=== PATIENT | female | born 1995 | race American Indian/Alaskan Native ===

== ENCOUNTER 2019-11-16 21:58 | Emergency (ER) | payer OTHER ==
[2019-11-16 23:39] LABS: Bacteria,Urine 1+ /HPF (Negative); Bilirubin,Urine NEG (Negative); Blood,Urine MOD (Negative); Color,Urine Yellow (Yellow); HCG Qualitative,Urine Positive (Negative); Protein,Urine <15 mg/dL mg/dL (Negative); Urobilinogen,Urine < 2.0 mg/dL (<2.0)
[2019-11-17 00:37] LABS: Basophils % (Auto) 0.4 % (0.0-1.8); Hematocrit 41.4 % (30.3-42.9); Hemoglobin 14.2 gm/dl (10.1-14.3); Lymphocytes # (Auto) 3.3 K/mm3 (1.2-5.4); Lymphocytes % (Auto) 53.1 % (13.4-35.0); Mean Corpuscular HGB Conc 34 % (30-34); Mean Corpuscular Volume 99 fl (79-97); Monocytes # (Auto) 0.3 K/mm3 (0.0-0.8); Monocytes % (Auto) 5.1 % (0.0-7.3); Platelet Count 200 K/mm3 (140-440); Red Blood Count 4.18 M/mm3 (3.65-5.03); Red Cell Distribution Width 13.8 % (13.2-15.2)
[2019-11-17 00:49] LABS: Alanine Aminotransferase 12 units/L (7-56); Albumin 4.7 g/dL (3.9-5); BUN/Creatinine Ratio 8; Blood Urea Nitrogen 7 mg/dL (7-17); Calcium 9.2 mg/dL (8.4-10.2); Hemolysis Index 7
[2019-11-17] MEDS ORDERED: AZITHROMYCIN 250 MG TAB PO ONE (00:52)
[2019-11-17] MEDS ORDERED: LIDOCAINE-MPF (1%) 10 MG/1 ML VIAL 5 ML INFILTRATI ONE (00:52)
[2019-11-17 01:41] VITALS: BP 125/87
--- NOTE | 2019-11-17 01:43 | Emergency Department Report ---
ED Female HPI - General Chief complaint: Abdominal Pain Stated complaint: ABDOMINAL PAIN Time Seen by Provider: 11/17/19 00:22 Source: patient Mode of arrival: Ambulatory Limitations: No Limitations - History of Present Illness Initial comments: Patient is a 24-year-old female presents emergency room with complaints of urinary frequency and dysuria that began this morning. She states she has associated suprapubic abdominal pain described as a pressure. She denies any nausea, vomiting, diarrhea, fever, back pain. She does not report any vaginal discharge or irritation. She states that she does have unprotected intercourse and would like to be covered for STDs. She states her last menstrual cycle was October 18. She has a past medical history of hyperthyroidism and is on methimazole and propanolol. She denies any allergies to medications. - Related Data Previous Rx's Medication Instructions Recorded Last Taken Type cephALEXin [Keflex] 500 mg PO BID 7 Days #14 cap 11/17/19 Unknown Rx Allergies Allergy/AdvReac Type Severity Reaction Status Date / Time No Known Allergies Allergy Verified 11/16/19 22:09 ED Review of Systems ROS: Stated complaint: ABDOMINAL PAIN Other details as noted in HPI Comment: All other systems reviewed and negative ED Past Medical Hx - Past Medical History Previous Medical History?: Yes Additional medical history: hyperthyroid - Surgical History Past Surgical History?: No - Social History Smoking Status: Current Every Day Smoker Substance Use Type: Marijuana - Medications Home Medications: Home Medications Medication Instructions Recorded Confirmed Last Taken Type cephALEXin [Keflex] 500 mg PO BID 7 Days #14 cap 11/17/19 Unknown Rx ED Physical Exam - General Limitations: No Limitations General appearance: alert, in no apparent distress - Head Head exam: Present: atraumatic, normocephalic - Eye Eye exam: Present: normal appearance - ENT ENT exam: Present: mucous membranes moist - Respiratory Respiratory exam: Present: normal lung sounds bilaterally. Absent: respiratory distress, wheezes, rales, rhonchi, stridor, chest wall tenderness, decreased breath sounds, prolonged expiratory - Cardiovascular Cardiovascular Exam: Present: regular rate, normal rhythm, normal heart sounds. Absent: systolic murmur, diastolic murmur, rubs, gallop - Back Exam Back exam: Absent: CVA tenderness (R), CVA tenderness (L) - Neurological Exam Neurological exam: Present: alert, oriented X3 - Psychiatric Psychiatric exam: Present: normal affect, normal mood - Skin Skin exam: Present: warm, dry, intact ED Course Vital Signs 11/16/19 22:08 Temperature 98.3 F Pulse Rate 87 Respiratory 18 Rate Blood Pressure 125/87 O2 Sat by Pulse 100 Oximetry ED Medical Decision Making - Lab Data Result diagrams: 11/16/19 23:57 11/16/19 23:57 Lab Results 11/16/19 11/16/19 11/16/19 Range/Units 23:47 23:57 23:57 WBC 6.2 (4.5-11.0) K/mm3 RBC 4.18 (3.65-5.03) M/mm3 Hgb 14.2 (10.1-14.3) gm/dl Hct 41.4 (30.3-42.9) % MCV 99 H (79-97) fl MCH 34 H (28-32) pg MCHC 34 (30-34) % RDW 13.8 (13.2-15.2) % Plt Count 200 (140-440) K/mm3 Lymph % (Auto) 53.1 H (13.4-35.0) % [place] % (Auto) 5.1 (0.0-7.3) % Eos % (Auto) 0.0 (0.0-4.3) % Baso % (Auto) 0.4 (0.0-1.8) % Lymph # 3.3 (1.2-5.4) K/mm3 [place] # 0.3 (0.0-0.8) K/mm3 Eos # 0.0 (0.0-0.4) K/mm3 Baso # 0.0 (0.0-0.1) K/mm3 Seg Neutrophils % 41.4 (40.0-70.0) % Seg Neutrophils # 2.6 (1.8-7.7) K/mm3 Sodium 138 (137-145) mmol/L Potassium 3.7 (3.6-5.0) mmol/L Chloride 98.4 (98-107) mmol/L Carbon Dioxide 25 (22-30) mmol/L Anion Gap 18 mmol/L BUN 7 (7-17) mg/dL Creatinine 0.9 (0.7-1.2) mg/dL Estimated GFR > 60 ml/min BUN/Creatinine Ratio 8 % Glucose 100 (65-100) mg/dL Calcium 9.2 (8.4-10.2) mg/dL Total Bilirubin 1.30 H (0.1-1.2) mg/dL AST 15 (5-40) units/L ALT 12 (7-56) units/L Alkaline Phosphatase 133 H (35-129) units/L Total Protein 7.8 (6.3-8.2) g/dL Albumin 4.7 (3.9-5) g/dL Albumin/Globulin Ratio 1.5 % HCG, Quant (0-4) mIU/mL Urine Color (Yellow) Urine Turbidity (Clear) Urine pH (5.0-7.0) Ur Specific [place] (1.003-1.030) Urine Protein (Negative) mg/dL Urine Glucose (UA) (Negative) mg/dL Urine Ketones (Negative) mg/dL Urine Blood (Negative) Urine Nitrite (Negative) Urine Bilirubin (Negative) Urine Urobilinogen (<2.0) mg/dL Ur Leukocyte Esterase (Negative) Urine WBC (Auto) (0.0-6.0) /HPF Urine RBC (Auto) (0.0-6.0) /HPF U Epithel Cells (Auto) (0-13.0) /HPF Urine Bacteria (Auto) (Negative) /HPF Urine HCG, Qual (Negative) Blood Type AB POSITIVE 11/16/19 11/16/19 Range/Units 23:57 Unknown WBC (4.5-11.0) K/mm3 RBC (3.65-5.03) M/mm3 Hgb (10.1-14.3) gm/dl Hct (30.3-42.9) % MCV (79-97) fl MCH (28-32) pg MCHC (30-34) % RDW (13.2-15.2) % Plt Count (140-440) K/mm3 Lymph % (Auto) (13.4-35.0) % [place] % (Auto) (0.0-7.3) % Eos % (Auto) (0.0-4.3) % Baso % (Auto) (0.0-1.8) % Lymph # (1.2-5.4) K/mm3 [place] # (0.0-0.8) K/mm3 Eos # (0.0-0.4) K/mm3 Baso # (0.0-0.1) K/mm3 Seg Neutrophils % (40.0-70.0) % Seg Neutrophils # (1.8-7.7) K/mm3 Sodium (137-145) mmol/L Potassium (3.6-5.0) mmol/L Chloride (98-107) mmol/L Carbon Dioxide (22-30) mmol/L Anion Gap mmol/L BUN (7-17) mg/dL Creatinine (0.7-1.2) mg/dL Estimated GFR ml/min BUN/Creatinine Ratio % Glucose (65-100) mg/dL Calcium (8.4-10.2) mg/dL Total Bilirubin (0.1-1.2) mg/dL AST (5-40) units/L ALT (7-56) units/L Alkaline Phosphatase (35-129) units/L Total Protein (6.3-8.2) g/dL Albumin (3.9-5) g/dL Albumin/Globulin Ratio % HCG, Quant 35.66 H (0-4) mIU/mL Urine Color Yellow (Yellow) Urine Turbidity Cloudy (Clear) Urine pH 6.0 (5.0-7.0) Ur Specific [place] 1.013 (1.003-1.030) Urine Protein <15 mg/dl (Negative) mg/dL Urine Glucose (UA) Neg (Negative) mg/dL Urine Ketones Neg (Negative) mg/dL Urine Blood Mod (Negative) Urine Nitrite Pos (Negative) Urine Bilirubin Neg (Negative) Urine Urobilinogen < 2.0 (<2.0) mg/dL Ur Leukocyte Esterase Lg (Negative) Urine WBC (Auto) 156.0 H (0.0-6.0) /HPF Urine RBC (Auto) 6.0 (0.0-6.0) /HPF U Epithel Cells (Auto) 32.0 H (0-13.0) /HPF Urine Bacteria (Auto) 1+ (Negative) /HPF Urine HCG, Qual Positive A (Negative) Blood Type - Radiology Data Radiology results: report reviewed OB ultrasound first trimester INDICATION: Pelvic pain, FINDINGS: Transabdominal and transvaginal imaging is performed. The uterus measures 8.8 cm. Endometrial stripe measures 9 mm. The right ovary measures 3.4 cm and is unremarkable. The left ovary measures 3.3 cm and contains a 2 cm complex nodule likely representing hemorrhagic cyst. There is no free fluid. IMPRESSION: No intrauterine is seen. This may simply represent a which is too early to visualize. Based upon this exam, ectopic cannot be entirely excluded though I do not see any definitive evidence for ectopic. Correlation with serum beta hCG level is recommended. Follow-up ultrasound should be obtained as is clinically warranted. Signer Name: Jamaal Patton MD Signed: 11/17/2019 2:39 AM Workstation Name: [id number] Transcribed By: SONG Dictated By: Jamaal Patton MD Electronically Authenticated By: Jamaal Patton MD Signed Date/Time: 11/17/19238 DD/ 4 TD/TT: - Medical Decision Making Patient is a 24-year-old female presents emergency room with complaints of urinary frequency and dysuria that began this morning. She states she has associated suprapubic abdominal pain described as a pressure. She denies any nausea, vomiting, diarrhea, fever, back pain. She does not report any vaginal discharge or irritation. She states that she does have unprotected intercourse and would like to be covered for STDs. She states her last menstrual cycle was October 18. She has a past medical history of hyperthyroidism and is on methimazole and propanolol. She denies any allergies to medications. Vitals are normal. No abdominal tenderness or CVA tenderness on exam. UA with many white blood cells and positive for leukocyte esterase and nitrites. Urine is positive. hCG quant is 35. OB ultrasound shows: No intrauterine is seen. This may simply represent a which is too early to visualize. Based upon this exam, ectopic cannot be entirely excluded though I do not see any definitive evidence for ectopic. Correlation with serum beta hCG level is recommended. Follow-up ultrasound should be obtained as if clinically warranted. Discussed ultrasound findings in detail with patient discussed that could be too early as her quant is only 35 or could be ectopic and discussed the importance of very close follow-up, patient verbalized understanding. Patient given 1 g ceftriaxone and azithromycin while in the ED to cover for UTI/G/C. Discussed case with Dr. Brianne Pascual, ER attending given that patient is and is on methimazole, recommended to have patient stop methimazole and to only take propanolol at this time and to have her see her primary care doctor or [facility] to determine her medication management. Patient given prescription for Keflex. Advised patient Please take medication as prescribed. Please increase your water intake. Please begin taking a vitamin [id number]. Please follow-up with [facility] in the next 2 days. You need to have a repeat hCG quant. Today your hCG quant is 35. please take your ultrasound report to the [facility]. Please stop taking methimazole and only take propanolol until you speak with your primary care doctor or the [facility] regarding being . return to the emergency reported new or worsening symptoms. Please have your partner tested and treated for STDs. Please avoid sexual intercourse. Critical care attestation.: If time is entered above; I have spent that time in minutes in the direct care of this critically ill patient, excluding procedure time. ED Disposition Clinical Impression: Left ovarian cyst UTI (urinary tract infection) Qualifiers: Urinary tract infection type: acute cystitis Hematuria presence: without hematuria Qualified Code(s): N30.00 - Acute cystitis without hematuria Qualifiers: Weeks of gestation: less than 8 weeks Qualified Code(s): Z3A.01 - Less than 8 weeks gestation of Disposition: - TO HOME OR SELFCARE Is pt being admited?: No Does the pt Need Aspirin: No Condition: Stable Instructions: (ED), Urinary Tract Infection in Women (ED) Additional Instructions: Please take medication as prescribed. Please increase your water intake. Please begin taking a vitamin [id number]. Please follow-up with [facility] in the next 2 days. You need to have a repeat hCG quant. Today your hCG quant is 35. please take your ultrasound report to the [facility]. Please stop taking methimazole and only take propanolol until you speak with your primary care doctor or the [facility] regarding being . return to the emergency reported new or worsening symptoms. Please have your partner tested and treated for STDs. Please avoid sexual intercourse. Prescriptions: cephALEXin [Keflex] 500 mg PO BID 7 Days #14 cap Referrals: [facility] [Provider Group] - 2-3 Days [facility] [Provider Group] - 2-3 Days [facility] [Provider Group] - 2-3 Days Time of Disposition: 02:49 Print Language: ESTONIAN
--- NOTE | 2019-11-17 02:44 | Ultrasound Report ---
OB ultrasound first trimester INDICATION: Pelvic pain, FINDINGS: Transabdominal and transvaginal imaging is performed. The uterus measures 8.8 cm. Endometrial stripe measures 9 mm. The right ovary measures 3.4 cm and is unremarkable. The left ovary measures 3.3 cm and contains a 2 cm complex nodule likely representing h emorrhagic cyst. There is no free fluid. IMPRESSION: No intrauterine is seen. This may simply represent a which is too early to visual ize. Based upon this exam, ectopic cannot be entirely excluded though I do not see any definitiv e evidence for ectopic. Correlation with serum beta hCG level is recommended. Follow-up ultrasound should be obtained as is c linically warranted. Signer Name: Jamaal Patton MD Signed: 11/17/2019 2:39 AM Workstation Name: [id number]
== END 2019-11-17 03:34 | disposition home or self-care (01) ==
LOC: ED 21:58
DX: O23.41 Unspecified infection of urinary tract in pregnancy, first trimester (principal); O34.81 Maternal care for other abnormalities of pelvic organs, first trimester; N83.202 Unspecified ovarian cyst, left side; E05.90 Thyrotoxicosis, unspecified without thyrotoxic crisis or storm; F17.200 Nicotine dependence, unspecified, uncomplicated; F12.10 Cannabis abuse, uncomplicated; Z3A.08 8 weeks gestation of pregnancy; Z79.899 Other long term (current) drug therapy
CPT/HCPCS: 36415; 76801; 76817; 80053; 81001; 81025; 84702; 85025; 86900; 86901; 87086; 96372; 99284; J0696

== ENCOUNTER 2020-03-30 08:30 | Emergency (ER) | payer OTHER ==
--- NOTE | 2020-03-30 11:02 | Emergency Department Report ---
ED General Adult HPI - General Chief complaint: Urogenital-Female Stated complaint: LUMP IN RT BREAST Time Seen by Provider: 03/30/20 09:16 Source: patient Mode of arrival: Ambulatory Limitations: No Limitations - History of Present Illness Initial comments: 24-year-old [place] female presents emerged department complaining of a 1 year history of a right breast mass which began to get painful on yesterday. Reports no swelling no nipple discharge no fevers chills or sweats no nausea vomiting no shortness of breath. This pain is worse with palpation and certain positions he reports no known history of any breast cancer or family history of breast cancer. She is not been Breast-feeding. Radiation: non-radiation Quality: dull Consistency: constant Improves with: none Worsens with: none Associated Symptoms: denies: confusion, chest pain, diaphoresis, loss of appetite, malaise, nausea/vomiting, rash, syncope, weakness Treatments Prior to Arrival: none - Related Data Previous Rx's Medication Instructions Recorded Last Taken Type cephALEXin [Keflex] 500 mg PO BID 7 Days #14 cap 11/17/19 Unknown Rx Dicloxacillin Sodium 500 mg PO QID #40 capsule 03/30/20 Unknown Rx Ketorolac [Toradol] 10 mg PO Q6H PRN #10 tablet 03/30/20 Unknown Rx Allergies Allergy/AdvReac Type Severity Reaction Status Date / Time No Known Allergies Allergy Verified 11/16/19 22:09 ED Review of Systems ROS: Stated complaint: LUMP IN RT BREAST Other details as noted in HPI Comment: All other systems reviewed and negative ED Past Medical Hx - Past Medical History Previous Medical History?: Yes Additional medical history: hyperthyroid - Surgical History Past Surgical History?: No - Social History Smoking Status: Never Smoker Substance Use Type: Marijuana - Medications Home Medications: Home Medications Medication Instructions Recorded Confirmed Last Taken Type cephALEXin [Keflex] 500 mg PO BID 7 Days #14 cap 11/17/19 Unknown Rx Dicloxacillin Sodium 500 mg PO QID #40 capsule 03/30/20 Unknown Rx Ketorolac [Toradol] 10 mg PO Q6H PRN #10 tablet 03/30/20 Unknown Rx ED Physical Exam - General Limitations: No Limitations General appearance: alert, in no apparent distress - Head Head exam: Present: atraumatic, normocephalic - Eye Eye exam: Present: normal appearance, PERRL, EOMI Pupils: Present: normal accommodation - ENT ENT exam: Present: normal exam, normal orophraynx, mucous membranes moist, TM's normal bilaterally - Neck Neck exam: Present: normal inspection, full ROM - Respiratory Respiratory exam: Present: normal lung sounds bilaterally. Absent: respiratory distress - Cardiovascular Cardiovascular Exam: Present: regular rate, normal rhythm. Absent: systolic murmur, diastolic murmur, rubs, gallop - GI/Abdominal GI/Abdominal exam: Present: soft, normal bowel sounds - Extremities Exam Extremities exam: Present: normal inspection - Back Exam Back exam: Present: normal inspection - Neurological Exam Neurological exam: Present: alert, oriented X3 - Psychiatric Psychiatric exam: Present: normal affect, normal mood - Skin Skin exam: Present: warm, dry, intact, normal color. Absent: rash ED Course Vital Signs 03/30/20 08:32 Temperature 98.3 F Pulse Rate 73 Respiratory 16 Rate Blood Pressure 113/78 O2 Sat by Pulse 100 Oximetry Critical care attestation.: If time is entered above; I have spent that time in minutes in the direct care of this critically ill patient, excluding procedure time. ED Disposition Clinical Impression: Breast mass Disposition: DC-01 TO HOME OR SELFCARE Is pt being admited?: No Does the pt Need Aspirin: No Condition: Stable Instructions: Breast Self-exam (ED), Breast Mass (ED) Prescriptions: Dicloxacillin Sodium 500 mg PO QID #40 capsule Ketorolac [Toradol] 10 mg PO Q6H PRN #10 tablet PRN Reason: Pain Referrals: ELMA SILVA MD [Primary Care Provider] - 3-5 Days MEREDITH LILLY MD [Staff Physician] - 3-5 Days
[2020-03-30 11:52] VITALS: BP 120/83
== END 2020-03-30 11:39 | disposition home or self-care (01) ==
LOC: ED 08:30
DX: N63.0 Unspecified lump in unspecified breast (principal); F12.10 Cannabis abuse, uncomplicated; Z79.899 Other long term (current) drug therapy
CPT/HCPCS: 99282

== ENCOUNTER 2020-05-21 15:22 | Emergency (ER) | payer OTHER ==
[2020-05-21] MEDS ORDERED: IBUPROFEN 600 MG TAB PO ONE (15:52)
[2020-05-21] MEDS ORDERED: dexAMETHasone 4 MG/ML VIAL IM ONE (15:52)
--- NOTE | 2020-05-21 15:52 | Emergency Department Report ---
ED ENT HPI - General Chief complaint: Sore Throat Stated complaint: TONSILS SWOLLEN Time Seen by Provider: 05/21/20 15:51 Source: patient Mode of arrival: Ambulatory Limitations: No Limitations - History of Present Illness Initial comments: Patient is a 24-year-old female presents emergency room with complaints of sore throat that began 3 days ago. She states that her tonsils feel swollen she states that she has white spots on her tonsils. She states that she has associated fever and chills and nausea. She denies any vomiting, diarrhea, cough, shortness of breath. She states that she has pain with swallowing but is still able to swallow. She denies any known sick contacts. She denies any recent travel. She has a past medical history of hypothyroidism and takes Synthroid. No allergies to medications. Last menstrual cycle 05/03/2020. - Related Data Previous Rx's Medication Instructions Recorded Last Taken Type cephALEXin [Keflex] 500 mg PO BID 7 Days #14 cap 11/17/19 Unknown Rx Dicloxacillin Sodium 500 mg PO QID #40 capsule 03/30/20 Unknown Rx Ketorolac [Toradol] 10 mg PO Q6H PRN #10 tablet 03/30/20 Unknown Rx Penicillin Vk [Veetids TAB] 500 mg PO BID 10 Days #40 tablet 05/21/20 Unknown Rx Allergies Allergy/AdvReac Type Severity Reaction Status Date / Time No Known Allergies Allergy Verified 11/16/19 22:09 ED Dental HPI - General Chief complaint: Sore Throat Stated complaint: TONSILS SWOLLEN Time Seen by Provider: 05/21/20 15:51 Source: patient Mode of arrival: Ambulatory Limitations: No Limitations - Related Data Previous Rx's Medication Instructions Recorded Last Taken Type cephALEXin [Keflex] 500 mg PO BID 7 Days #14 cap 11/17/19 Unknown Rx Dicloxacillin Sodium 500 mg PO QID #40 capsule 03/30/20 Unknown Rx Ketorolac [Toradol] 10 mg PO Q6H PRN #10 tablet 03/30/20 Unknown Rx Penicillin Vk [Veetids TAB] 500 mg PO BID 10 Days #40 tablet 05/21/20 Unknown Rx Allergies Allergy/AdvReac Type Severity Reaction Status Date / Time No Known Allergies Allergy Verified 11/16/19 22:09 ED Review of Systems ROS: Stated complaint: TONSILS SWOLLEN Other details as noted in HPI Comment: All other systems reviewed and negative ED Past Medical Hx - Past Medical History Previous Medical History?: Yes Additional medical history: hyperthyroid - Surgical History Past Surgical History?: No - Social History Smoking Status: Former Smoker Substance Use Type: Alcohol - Medications Home Medications: Home Medications Medication Instructions Recorded Confirmed Last Taken Type cephALEXin [Keflex] 500 mg PO BID 7 Days #14 cap 11/17/19 Unknown Rx Dicloxacillin Sodium 500 mg PO QID #40 capsule 03/30/20 Unknown Rx Ketorolac [Toradol] 10 mg PO Q6H PRN #10 tablet 03/30/20 Unknown Rx Penicillin Vk [Veetids TAB] 500 mg PO BID 10 Days #40 tablet 05/21/20 Unknown Rx ED Physical Exam - General Limitations: No Limitations General appearance: alert, in no apparent distress - Head Head exam: Present: atraumatic, normocephalic - Eye Eye exam: Present: normal appearance - ENT ENT exam: Present: mucous membranes moist, TM's normal bilaterally, normal external ear exam, other (posterior oropharynx erythema, tonsillar hypertrophy with exudates bilaterally, uvula is midline, no uvular edema or deviation, no trismus, no muffled voice, tolerating secretions) - Respiratory Respiratory exam: Present: normal lung sounds bilaterally. Absent: respiratory distress, wheezes, rales, rhonchi, stridor, chest wall tenderness, accessory muscle use, decreased breath sounds, prolonged expiratory - Cardiovascular Cardiovascular Exam: Present: regular rate, normal rhythm, normal heart sounds. Absent: systolic murmur, diastolic murmur, rubs, gallop - Neurological Exam Neurological exam: Present: alert, oriented X3 - Psychiatric Psychiatric exam: Present: normal affect, normal mood - Skin Skin exam: Present: warm, dry, intact ED Course Vital Signs 05/21/20 05/21/20 15:44 16:54 Temperature 100.1 F H Pulse Rate 110 H 96 H Respiratory 22 16 Rate Blood Pressure 122/86 Blood Pressure 113/73 [Left] O2 Sat by Pulse 97 99 Oximetry ED Medical Decision Making - Lab Data Vital Signs 05/21/20 05/21/20 15:44 16:54 Temperature 100.1 F H Pulse Rate 110 H 96 H Respiratory 22 16 Rate Blood Pressure 122/86 Blood Pressure 113/73 [Left] O2 Sat by Pulse 97 99 Oximetry - Medical Decision Making Patient is a 24-year-old female presents emergency room with complaints of sore throat that began 3 days ago. She states that her tonsils feel swollen she states that she has white spots on her tonsils. She states that she has associated fever and chills and nausea. She denies any vomiting, diarrhea, cough, shortness of breath. She states that she has pain with swallowing but is still able to swallow. She denies any known sick contacts. She denies any recent travel. She has a past medical history of hypothyroidism and takes Sy nthroid. No allergies to medications. Last menstrual cycle 05/03/2020. Initial vitals with elevated heart rate and low grade temperature, pt given ibuprofen. On exam:posterior oropharynx erythema, tonsillar hypertrophy with exudates bilaterally, uvula is midline, no uvular edema or deviation, no trismus, no muffled voice, tolerating secretions. Examination appears consistent with tonsillitis. Patient given ibuprofen and dexamethasone IM while in the emergency department. Patient given prescription for penicillin vk. Advised patient to please take medication as prescribed to completion. Increase your fluid intake over the next several days. Gargle with warm salt water 3 times a day. Throw away your toothbrush. Do not drink after others or allow others to drink after you. May use [id number] throat spray or throat lozenges. May take Tylenol or ibuprofen as needed for fever or pain. Follow-up with a primary care doctor for reexamination. Return to emergency room for any new or worsening symptoms. - Differential Diagnosis tonsillitis, pharyngitis, tonsillith, sialoadenitis, mono, abscess Critical care attestation.: If time is entered above; I have spent that time in minutes in the direct care of this critically ill patient, excluding procedure time. ED Disposition Clinical Impression: Tonsillitis Disposition: DC-01 TO HOME OR SELFCARE Is pt being admited?: No Does the pt Need Aspirin: No Condition: Stable Instructions: Tonsillitis, [id number] Additional Instructions: please take medication as prescribed to completion. Increase your fluid intake over the next several days. Gargle with warm salt water 3 times a day. Throw away your toothbrush. Do not drink after others or allow others to drink after you. May use [id number] throat spray or throat lozenges. May take Tylenol or ibuprofen as needed for fever or pain. Follow-up with a primary care doctor for reexamination. Return to emergency room for any new or worsening symptoms. Prescriptions: Penicillin Vk [Veetids TAB] 500 mg PO BID 10 Days #40 tablet Referrals: LINETTE YUEN MD [Staff Physician] - 2-3 Days [facility] [Provider Group] - 2-3 Days [facility], [LAB/CONTRACT] - 2-3 Days Time of Disposition: 16:37 Print Language: FAROESE
[2020-05-21 16:55] VITALS: BP 113/73
== END 2020-05-21 17:10 | disposition home or self-care (01) ==
LOC: ED 15:22
DX: J03.90 Acute tonsillitis, unspecified (principal); Z87.891 Personal history of nicotine dependence; Z79.2 Long term (current) use of antibiotics; Z79.899 Other long term (current) drug therapy
CPT/HCPCS: 96372; 99282; J1100

== ENCOUNTER 2020-06-02 10:45 | Emergency (ER) | payer OTHER ==
[2020-06-02 10:55] VITALS: BP 115/72
--- NOTE | 2020-06-02 10:58 | Emergency Department Report ---
ED General Adult HPI - General Chief complaint: Eye Problems Stated complaint: RT EYE IRRITATION X 4DAYS Time Seen by Provider: 06/02/20 10:53 Source: patient Mode of arrival: Ambulatory Limitations: No Limitations - History of Present Illness Initial comments: 24-year-old -[place] female patient presents with complaints of right eye redness and swelling x2 days she does report mild pain that she rates as a 2/10 in severity. Patient states her symptoms began after she was smoking in the smoke got in her eye. She states she began to rub her eye a great deal and it became irritated. She denies any foreign body sensation, pain with eye movements, fever/chills/sweats, vision changes, headache, or contact lens wearing. - Related Data Previous Rx's Medication Instructions Recorded Last Taken Type cephALEXin [Keflex] 500 mg PO BID 7 Days #14 cap 11/17/19 Unknown Rx Dicloxacillin Sodium 500 mg PO QID #40 capsule 03/30/20 Unknown Rx Ketorolac [Toradol] 10 mg PO Q6H PRN #10 tablet 03/30/20 Unknown Rx Penicillin Vk [Veetids TAB] 500 mg PO BID 10 Days #40 tablet 05/21/20 Unknown Rx Clindamycin [Clindamycin CAP] 300 mg PO Q6H 5 Days #20 capsule 06/02/20 Unknown Rx Erythromycin [Erythromycin Ophth 10 applic OP Q3H 7 Days #1 tube 06/02/20 Unknown Rx Oint] predniSONE [Deltasone] 20 mg PO TID 2 Days #6 tab 06/02/20 Unknown Rx Allergies Allergy/AdvReac Type Severity Reaction Status Date / Time No Known Allergies Allergy Verified 06/02/20 10:45 ED Review of Systems ROS: Stated complaint: RT EYE IRRITATION X 4DAYS Other details as noted in HPI Constitutional: denies: chills, diaphoresis, fever, malaise, weakness Eyes: eye pain. denies: eye discharge, vision change ENT: denies: throat pain Respiratory: denies: cough, shortness of breath Cardiovascular: denies: chest pain Neurological: denies: headache, numbness, paresthesias ED Past Medical Hx - Past Medical History Additional medical history: hyperthyroid - Social History Smoking Status: Never Smoker - Medications Home Medications: Home Medications Medication Instructions Recorded Confirmed Last Taken Type cephALEXin [Keflex] 500 mg PO BID 7 Days #14 cap 11/17/19 Unknown Rx Dicloxacillin Sodium 500 mg PO QID #40 capsule 03/30/20 Unknown Rx Ketorolac [Toradol] 10 mg PO Q6H PRN #10 tablet 03/30/20 Unknown Rx Penicillin Vk [Veetids TAB] 500 mg PO BID 10 Days #40 tablet 05/21/20 Unknown Rx Clindamycin [Clindamycin CAP] 300 mg PO Q6H 5 Days #20 capsule 06/02/20 Unknown Rx Erythromycin [Erythromycin Ophth 10 applic OP Q3H 7 Days #1 tube 06/02/20 Unknown Rx Oint] predniSONE [Deltasone] 20 mg PO TID 2 Days #6 tab 06/02/20 Unknown Rx ED Physical Exam - General Limitations: No Limitations General appearance: alert, in no apparent distress - Head Head exam: Present: atraumatic, normocephalic - Eye Eye exam: Present: PERRL, EOMI (No pain with eye movements), conjunctival injection (Right), periorbital swelling (Moderate, right upper lid with mild erythema). Absent: periorbital tenderness - ENT ENT exam: Absent: normal orophraynx - Neck Neck exam: Present: normal inspection, full ROM. Absent: lymphadenopathy - Respiratory Respiratory exam: Present: normal lung sounds bilaterally. Absent: respiratory distress - Cardiovascular Cardiovascular Exam: Present: regular rate - Neurological Exam Neurological exam: Present: alert, oriented X3, normal gait - Psychiatric Psychiatric exam: Present: normal affect, normal mood - Skin Skin exam: Present: warm, dry, intact. Absent: rash ED Course Vital Signs 06/02/20 10:50 Temperature 98.6 F Pulse Rate 87 Respiratory 19 Rate Blood Pressure 115/72 O2 Sat by Pulse 100 Oximetry ED Medical Decision Making - Medical Decision Making 24-year-old -[place] female patient presents with complaints of right eye redness and swelling x2 days she does report mild pain that she rates as a 2/10 in severity. Patient states her symptoms began after she was smoking in the smoke got in her eye. She states she began to rub her eye a great deal and it became irritated. She denies any foreign body sensation, pain with eye movements, fever/chills/sweats, vision changes, headache, or contact lens wearing. Will treat for conjunctivitis. Given degree of swelling to upper lid, oral clindamycin added for prophylaxis of preseptal cellulitis. Her vitals are normal, she is well-appearing, she is stable for discharge home. Recommend follow-up with PCP in 3 to 5 days. Strict return precautions were discussed in great detail with patient who verbalizes understanding Critical care attestation.: If time is entered above; I have spent that time in minutes in the direct care of this critically ill patient, excluding procedure time. ED Disposition Clinical Impression: Acute bacterial conjunctivitis of right eye Disposition: [id number]-01 TO HOME OR SELFCARE Is pt being admited?: No Condition: Stable Instructions: Bacterial Conjunctivitis, Adult Prescriptions: Clindamycin [Clindamycin CAP] 300 mg PO Q6H 5 Days #20 capsule predniSONE [Deltasone] 20 mg PO TID 2 Days #6 tab Erythromycin [Erythromycin Ophth Oint] 10 applic OP Q3H 7 Days #1 tube Referrals: [facility] [Provider Group] - 3-5 Days
== END 2020-06-02 12:25 | disposition home or self-care (01) ==
LOC: ED 10:45
DX: H10.31 Unspecified acute conjunctivitis, right eye (principal); Z79.2 Long term (current) use of antibiotics; Z79.899 Other long term (current) drug therapy
CPT/HCPCS: 99282

== ENCOUNTER 2020-09-12 15:15 | Emergency (ER) | payer SELFPAY ==
[2020-09-12 15:37] VITALS: BP 106/72
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
== END 2020-09-12 16:54 | disposition home or self-care (01) ==
LOC: ED 15:15
DX: S16.1XXA Strain of muscle, fascia and tendon at neck level, initial encounter (principal); E05.90 Thyrotoxicosis, unspecified without thyrotoxic crisis or storm; Z79.899 Other long term (current) drug therapy; V49.59XA Passenger injured in collision with other motor vehicles in traffic accident, initial encounter; Y92.410 Unspecified street and highway as the place of occurrence of the external cause; Y93.89 Activity, other specified; Y99.8 Other external cause status
CPT/HCPCS: 99281

== ENCOUNTER 2020-10-21 10:11 | Emergency (ER) | payer OTHER ==
[2020-10-21 10:17] VITALS: BP 109/78
--- NOTE | 2020-10-21 11:07 | Emergency Department Report ---
ED General Adult HPI - General Chief complaint: Medical Clearance Stated complaint: MED REFILL Time Seen by Provider: 10/21/20 10:27 Source: patient Mode of arrival: Ambulatory Limitations: No Limitations - History of Present Illness Initial comments: 25-year-old -[place] female patient presents with complaints of intermittent dizziness x3 months. Patient states she is concerned because she has history of hypothyroidism and has not been on any medication for this for approximately 1 year. She denies any chest pain, shortness of breath, loss of consciousness, head trauma, vision changes, numbness/tingling/weakness in her limbs, confusion, memory loss, or difficulty with speech/ambulation. No current dizziness per patient. No other past medical history per patient. - Related Data Previous Rx's Medication Instructions Recorded Last Taken Type cephALEXin [Keflex] 500 mg PO BID 7 Days #14 cap 11/17/19 Unknown Rx Dicloxacillin Sodium 500 mg PO QID #40 capsule 03/30/20 Unknown Rx Ketorolac [Toradol] 10 mg PO Q6H PRN #10 tablet 03/30/20 Unknown Rx Penicillin Vk [Veetids TAB] 500 mg PO BID 10 Days #40 tablet 05/21/20 Unknown Rx Clindamycin [Clindamycin CAP] 300 mg PO Q6H 5 Days #20 capsule 06/02/20 Unknown Rx Erythromycin [Erythromycin Ophth 10 applic OP Q3H 7 Days #1 tube 06/02/20 Unknown Rx Oint] predniSONE [Deltasone] 20 mg PO TID 2 Days #6 tab 06/02/20 Unknown Rx Allergies Allergy/AdvReac Type Severity Reaction Status Date / Time No Known Allergies Allergy Verified 06/02/20 10:45 ED Review of Systems ROS: Stated complaint: MED REFILL Other details as noted in HPI Constitutional: denies: chills, diaphoresis, fever, malaise, weakness Respiratory: denies: cough, shortness of breath Cardiovascular: denies: chest pain Endocrine: denies: excessive sweating, flushing, unexplained weight loss Gastrointestinal: denies: abdominal pain, nausea, vomiting Genitourinary: denies: urgency, dysuria, frequency, hematuria Skin: denies: rash, change in color Neurological: denies: headache, weakness, numbness, paresthesias, abnormal gait Hematological/Lymphatic: denies: easy bleeding, easy bruising, swollen glands ED Past Medical Hx - Past Medical History Previous Medical History?: Yes Additional medical history: hyperthyroid - Surgical History Past Surgical History?: No - Social History Smoking Status: Current Every Day Smoker Substance Use Type: Alcohol, Prescribed - Medications Home Medications: Home Medications Medication Instructions Recorded Confirmed Last Taken Type cephALEXin [Keflex] 500 mg PO BID 7 Days #14 cap 11/17/19 Unknown Rx Dicloxacillin Sodium 500 mg PO QID #40 capsule 03/30/20 Unknown Rx Ketorolac [Toradol] 10 mg PO Q6H PRN #10 tablet 03/30/20 Unknown Rx Penicillin Vk [Veetids TAB] 500 mg PO BID 10 Days #40 tablet 05/21/20 Unknown Rx Clindamycin [Clindamycin CAP] 300 mg PO Q6H 5 Days #20 capsule 06/02/20 Unknown Rx Erythromycin [Erythromycin Ophth 10 applic OP Q3H 7 Days #1 tube 06/02/20 Unknown Rx Oint] predniSONE [Deltasone] 20 mg PO TID 2 Days #6 tab 06/02/20 Unknown Rx ED Physical Exam - General Limitations: No Limitations General appearance: alert, in no apparent distress - Head Head exam: Present: atraumatic, normal inspection - Eye Eye exam: Present: normal appearance, EOMI - Respiratory Respiratory exam: Absent: respiratory distress - Cardiovascular Cardiovascular Exam: Present: regular rate, normal rhythm - GI/Abdominal GI/Abdominal exam: Present: soft. Absent: tenderness - Neurological Exam Neurological exam: Present: alert, oriented X3, CN II-XII intact, normal gait. Absent: motor sensory deficit - Expanded Neurological Exam Expanded Cerebellar function: Finger to Nose: Normal, Heel to [place]: Normal, Romberg: Normal Sensory exam: Upper Extremity Light Touch: Normal, Lower Extremity Light Touch: Normal Motor strength exam: RUE: 5, LUE: 5, RLE: 5, LLE: 5 - Psychiatric Psychiatric exam: Present: normal affect, normal mood - Skin Skin exam: Present: warm, dry, intact, normal color. Absent: rash, cyanosis, diaphoretic, pallor ED Course Vital Signs 10/21/20 10:14 Temperature 98.4 F Pulse Rate 84 Respiratory 20 Rate Blood Pressure 109/78 O2 Sat by Pulse 100 Oximetry ED Medical Decision Making - Lab Data Result diagrams: 10/21/20 11:24 10/21/20 11:24 Lab Results 10/21/20 10/21/20 10/21/20 Range/Units 11:24 11:24 11:24 WBC 3.6 L (4.5-11.0) K/mm3 RBC 3.87 (3.65-5.03) M/mm3 Hgb 13.3 (10.1-14.3) gm/dl Hct 38.6 (30.3-42.9) % MCV 100 H (79-97) fl MCH 34 H (28-32) pg MCHC 34 (30-34) % RDW 14.1 (13.2-15.2) % Plt Count 192 (140-440) K/mm3 Lymph % (Auto) 42.2 H (13.4-35.0) % Gar[place] % (Auto) 9.0 H (0.0-7.3) % Eos % (Auto) 0.5 (0.0-4.3) % Baso % (Auto) 0.5 (0.0-1.8) % Lymph # (Auto) 1.5 (1.2-5.4) K/mm3 [place] # (Auto) 0.3 (0.0-0.8) K/mm3 Eos # (Auto) 0.0 (0.0-0.4) K/mm3 Baso # (Auto) 0.0 (0.0-0.1) K/mm3 Seg Neutrophils % 47.8 (40.0-70.0) % Seg Neutrophils # 1.7 L (1.8-7.7) K/mm3 Sodium 137 (137-145) mmol/L Potassium 3.5 L (3.6-5.0) mmol/L Chloride 102.1 (98-107) mmol/L Carbon Dioxide 29 (22-30) mmol/L Anion Gap 9 mmol/L BUN 4 L (7-17) mg/dL Creatinine 0.7 (0.6-1.2) mg/dL Estimated GFR > 60 ml/min BUN/Creatinine Ratio 6 % Glucose 88 (65-100) mg/dL Calcium 8.5 (8.4-10.2) mg/dL Total Bilirubin 1.20 (0.1-1.2) mg/dL AST 11 (5-40) units/L ALT 9 (7-56) units/L Alkaline Phosphatase 98 (35-129) units/L Total Protein 7.0 (6.3-8.2) g/dL Albumin 4.3 (3.9-5) g/dL Albumin/Globulin Ratio 1.6 % TSH (0.270-4.200) mlU/mL Thyroxine (T4) 6.8 (4.0-12.0) ug/dL HCG, Qual (Negative) 10/21/20 10/21/20 Range/Units 11:24 11:24 WBC (4.5-11.0) K/mm3 RBC (3.65-5.03) M/mm3 Hgb (10.1-14.3) gm/dl Hct (30.3-42.9) % MCV (79-97) fl MCH (28-32) pg MCHC (30-34) % RDW (13.2-15.2) % Plt Count (140-440) K/mm3 Lymph % (Auto) (13.4-35.0) % Gar[place] % (Auto) (0.0-7.3) % Eos % (Auto) (0.0-4.3) % Baso % (Auto) (0.0-1.8) % Lymph # (Auto) (1.2-5.4) K/mm3 Gar[place] # (Auto) (0.0-0.8) K/mm3 Eos # (Auto) (0.0-0.4) K/mm3 Baso # (Auto) (0.0-0.1) K/mm3 Seg Neutrophils % (40.0-70.0) % Seg Neutrophils # (1.8-7.7) K/mm3 Sodium (137-145) mmol/L Potassium (3.6-5.0) mmol/L Chloride (98-107) mmol/L Carbon Dioxide (22-30) mmol/L Anion Gap mmol/L BUN (7-17) mg/dL Creatinine (0.6-1.2) mg/dL Estimated GFR ml/min BUN/Creatinine Ratio % Glucose (65-100) mg/dL Calcium (8.4-10.2) mg/dL Total Bilirubin (0.1-1.2) mg/dL AST (5-40) units/L ALT (7-56) units/L Alkaline Phosphatase (35-129) units/L Total Protein (6.3-8.2) g/dL Albumin (3.9-5) g/dL Albumin/Globulin Ratio % TSH 0.598 (0.270-4.200) mlU/mL Thyroxine (T4) (4.0-12.0) ug/dL HCG, Qual Negative (Negative) - EKG Data EKG shows normal: sinus rhythm Rate: normal - EKG Data Interpretation: normal EKG - Radiology Data Radiology results: report reviewed - Medical Decision Making 25-year-old -[place] female patient presents with complaints of intermittent dizziness x3 months. Patient states she is concerned because she has history of hypothyroidism and has not been on any medication for this for approximately 1 year. She denies any chest pain, shortness of breath, loss of consciousness, head trauma, vision changes, numbness/tingling/weakness in her limbs, confusion, memory loss, or difficulty with speech/ambulation. No current dizziness per patient. No other past medical history per patient. TSH and T4 levels are normal. Mildly decreased white blood cells and minimal hypokalemia noted at 3.5. Patient informed to eat 1 banana once a day for the next 3 days. EKG is normal. Patient also informed to follow-up with a primary care doctor for further evaluation and management of her hyperthyroidism within 3 days. She is neurologically intact, her vitals are normal, she is stable for discharge home. Strict return precautions were discussed in great detail with patient who verbalizes understanding. Critical care attestation.: If time is entered above; I have spent that time in minutes in the direct care of this critically ill patient, excluding procedure time. ED Disposition Clinical Impression: Dizziness, Abnormal white blood cell count, Hypokalemia Disposition: - TO HOME OR SELFCARE Is pt being admited?: No Condition: Stable Instructions: Hypokalemia, Dizziness Referrals: [facility] [Provider Group] - 3-5 Days
[2020-10-21 12:10] LABS: Basophils % (Auto) 0.5 % (0.0-1.8); Eosinophils % (Auto) 0.5 % (0.0-4.3); Hematocrit 38.6 % (30.3-42.9); Hemoglobin 13.3 gm/dl (10.1-14.3); Lymphocytes # (Auto) 1.5 K/mm3 (1.2-5.4); Lymphocytes % (Auto) 42.2 % (13.4-35.0); Mean Corpuscular HGB Conc 34 % (30-34); Mean Corpuscular Volume 100 fl (79-97); Monocytes # (Auto) 0.3 K/mm3 (0.0-0.8); Platelet Count 192 K/mm3 (140-440); Red Blood Count 3.87 M/mm3 (3.65-5.03); Red Cell Distribution Width 14.1 % (13.2-15.2)
[2020-10-21 12:52] LABS: Alanine Aminotransferase 9 units/L (7-56); Albumin 4.3 g/dL (3.9-5); Blood Urea Nitrogen 4 mg/dL (7-17); Calcium 8.5 mg/dL (8.4-10.2); Hemolysis Index 6
[2020-10-21 12:55] LABS: BUN/Creatinine Ratio 6
--- NOTE | 2020-10-23 10:36 | Electrocardiograph Report ---
[facility] Test Date: 2020-10-21 Test Time: 12:11:57 Pat Name: KARLEY THRASHER Department: Room: Gender: F Guide Visitor: MISSY : 1995 Requested By: SOILA CHENG Order Number: [id number] Reading MD: Jose Webb Measurements Intervals [place] Rate: 68 P: 61 ID: [id number] QRS: 36 QRSD: 99 T: 2 QT: 410 QTc: 438 Interpretive Statements Sinus rhythm RSR' IN V1 OR V2, PROBABLY NORMAL VARIANT No previous ECG available for comparison Electronically Signed On 10-23-2020 10:36:21 EDT by Jose Webb
== END 2020-10-21 13:09 | disposition home or self-care (01) ==
LOC: ED 10:11
DX: R42 Dizziness and giddiness (principal); E87.6 Hypokalemia; D72.829 Elevated white blood cell count, unspecified; F17.200 Nicotine dependence, unspecified, uncomplicated; Z79.2 Long term (current) use of antibiotics; Z79.899 Other long term (current) drug therapy
CPT/HCPCS: 36415; 80053; 84436; 84443; 84703; 85025; 93005

== ENCOUNTER 2021-03-27 12:00 | Emergency (ER) | payer OTHER ==
--- NOTE | 2021-03-27 12:05 | Event Note ---
ED Screening Note Date of service: 03/27/21 Time: 12:04 ED Screening Note: Patient complains of sudden onset of nausea and vomiting and chest pain starting yesterday History of goiter and hyperthyroidism-not currently on any treatment or seeing a specialist Heart rate noted to be 142 This initial assessment/diagnostic orders/clinical plan/treatment(s) is/are subject to change based on patients health status, clinical progression and re- assessment by fellow clinical providers in the ED. Further treatment and workup at subsequent clinical providers discretion. Patient/guardian urged not to elope from the ED as their condition may be serious if not clinically assessed and managed. Initial orders include: Labs Chest x-ray EKG
--- NOTE | 2021-03-27 12:44 | Event Note ---
Date: 03/27/21 I signed up for the patient and put in appropriate orders based on the presenting symptoms and information that the patient was tachycardic. However, when I went to evaluate the patient I was informed by the EMT that she had eloped and he saw her get in a car and drive off i prior to being seen by me.
--- NOTE | 2021-04-02 14:12 | Electrocardiograph Report ---
[facility] Test Date: 2021-03-27 Test Time: 12:02:46 Pat Name: KARLEY THRASHER Department: Room: Gender: F [employer] Teacher: lala : 1995 Requested By: SOILA CHENG Order Number: [id number] Reading MD: Lizette Neil Measurements Intervals [place] Rate: 110 P: 85 CA: 141 QRS: 65 QRSD: 96 T: 19 QT: 367 QTc: 496 Interpretive Statements Sinus tachycardia SAMMIE, consider biatrial enlargement Prolonged QT interval Compared to ECG 10/21/2020 12:11:57 Sinus rate has increased Electronically Signed On 04-02-2021 14:12:25 EDT by Lizette Neil
== END 2021-03-27 12:33 | disposition left against medical advice (07) ==
LOC: ED 12:00
DX: R11.2 Nausea with vomiting, unspecified (principal); Z53.21 Procedure and treatment not carried out due to patient leaving prior to being seen by health care provider
CPT/HCPCS: 93005

== ENCOUNTER 2021-05-02 08:06 | Emergency (ER) | payer OTHER ==
[2021-05-02] MEDS ORDERED: diphenhydrAMINE 25 MG/10 ML ORAL LIQUID PO ONE (08:17)
[2021-05-02] MEDS ORDERED: FAMOTIDINE 20 MG TAB PO ONE (08:17)
[2021-05-02] MEDS ORDERED: predniSONE 20 MG TAB PO ONE (08:17)
--- NOTE | 2021-05-02 08:21 | Emergency Department Report ---
ED Rash HPI - HPI Chief Complaint: Skin Rash Stated Complaint: POSS ALLERGIC REACTION Time Seen by Provider: 05/02/21 08:16 Duration: 3 Days Location: Back, Abdomen, Upper Extremities Suspected Cause: Unknown Rash Symptoms: No Itching, No Facial Swelling, No Tongue/Oral Swelling, No Breathing Difficulties, No Choking Sensation, No Wheezing/Dyspnea, No Peeling, No Blistering, No Fever, No Lightheaded, No Malaise, No Myalgias Severity: mild Other History: 25 yo AA comes to ER with 3 day hx of rash on arms, abd and back. Denies known exposure to allergen. No hx of the same. No one in home with the same. ABC intact. VSS. Ambulatory and non ill appearing on arrival to ER. no sob. no cp. no fever. no systemic symptoms ED Review of Systems ROS: Stated complaint: POSS ALLERGIC REACTION Other details as noted in HPI Comment: All other systems reviewed and negative ED Past Medical Hx - Past Medical History Previous Medical History?: Yes Additional medical history: hyperthyroid - Surgical History Past Surgical History?: No - Family History Family history: no significant - Social History Smoking Status: Current Every Day Smoker Substance Use Type: Alcohol, Prescribed - Medications Home Medications: Home Medications Medication Instructions Recorded Confirmed Last Taken Type Famotidine [Pepcid] 20 mg PO DAILY #30 tablet 05/02/21 Unknown Rx diphenhydrAMINE [Benadryl CAP] 25 mg PO Q8HR PRN #20 capsule 05/02/21 Unknown Rx predniSONE [Deltasone] 20 mg PO DAILY #5 tablet 05/02/21 Unknown Rx Rash Exam - Exam General: Vital signs noted. No distress. Alert and acting appropriately. HEENT: No Periorbital Edema, No Conjuctival Injection, No Chemosis, No Perioral Edema, No Tongue Edema, No Uvular Edema, No Compromised Airway, No Drooling Lungs: Yes Good Air Exchange (Normal Breath Sounds), No Wheezes, No Ronchi, No Stridor, No Cough, No Labored Respirations, No Retractions, No Use of Accessory Muscles, No Other Abnormal Lung Sounds Heart: Yes Regular, No Murmur Other: Positive: Abdomen Normal, Neurologic Normal, Musculoskeletal Normal ED Medical Decision Making - Medical Decision Making 3 day hx hives vss no sob ? exposure to new allergen; no one in home has the same medicated in ER dc home with dc plan of care including rx/follow up. Pt verbalizes understanding of plan of care vs normal as documented by RN. - Differential Diagnosis rash Critical care attestation.: If time is entered above; I have spent that time in minutes in the direct care of this critically ill patient, excluding procedure time. ED Disposition Clinical Impression: Rash Disposition: 01 HOME / SELF CARE / HOMELESS Is pt being admited?: No Does the pt Need Aspirin: No Condition: Stable Instructions: Rash, Adult Additional Instructions: meds as ordered today follow up with pcp/derm physician if persists referrals below Prescriptions: diphenhydrAMINE [Benadryl CAP] 25 mg PO Q8HR PRN #20 capsule PRN Reason: Itching predniSONE [Deltasone] 20 mg PO DAILY #5 tablet Famotidine [Pepcid] 20 mg PO DAILY #30 tablet Referrals: LINETTE YUEN MD [Staff Physician] - 3-5 Days MINISTERIO SANTIAGO MD [Referring] - 3-5 Days Time of Disposition: 08:18
== END 2021-05-02 09:03 | disposition home or self-care (01) ==
LOC: ED 08:06
DX: R21 Rash and other nonspecific skin eruption (principal); F17.200 Nicotine dependence, unspecified, uncomplicated; Z72.89 Other problems related to lifestyle; Z79.899 Other long term (current) drug therapy
CPT/HCPCS: 99282; J7512; Q0163

== ENCOUNTER 2021-05-17 10:22 | Emergency (ER) | payer OTHER ==
--- NOTE | 2021-05-17 10:41 | Emergency Department Report ---
ED General Adult HPI - General Chief complaint: Pain General Stated complaint: My goiter is swollen PUI?: No Time Seen by Provider: 05/17/21 10:35 Source: patient, RN notes reviewed Mode of arrival: Ambulatory Limitations: No Limitations - History of Present Illness Initial comments: The patient is a 25-year-old female. She has a history of hyper thyroidism. She states that she is not . She also consumes tobacco and marijuana. She was diagnosed with overactive thyroid at [facility] 2 years ago. She has not taken her thyroid medication for about 2 years. She presents to the ER today with complaint of nontraumatic minimally painful anterior thyroid swelling. The patient denies headache, neck pain, chest pain, abdominal pain, shortness of breath. She feels that sometimes she has difficulty swallowing. This is now resolved. She feels very anxious. This is now resolved. -: Gradual, week(s), month(s), year(s) Location: neck Radiation: non-radiation Quality: aching Consistency: constant Improves with: none Worsens with: none Associated Symptoms: denies other symptoms - Related Data Previous Rx's Medication Instructions Recorded Last Taken Type Famotidine [Pepcid] 20 mg PO DAILY #30 tablet 05/02/21 Unknown Rx diphenhydrAMINE [Benadryl CAP] 25 mg PO Q8HR PRN #20 capsule 05/02/21 Unknown Rx predniSONE [Deltasone] 20 mg PO DAILY #5 tablet 05/02/21 Unknown Rx Allergies Allergy/AdvReac Type Severity Reaction Status Date / Time No Known Allergies Allergy Verified 05/17/21 10:24 ED Review of Systems ROS: Stated complaint: THROAT SWOLLEN Other details as noted in HPI Comment: All other systems reviewed and negative Psychiatric: anxiety ED Past Medical Hx - Past Medical History Previous Medical History?: Yes Additional medical history: hyperthyroid - Surgical History Past Surgical History?: No - Social History Smoking Status: Current Every Day Smoker Substance Use Type: Alcohol, Marijuana - Medications Home Medications: Home Medications Medication Instructions Recorded Confirmed Last Taken Type Famotidine [Pepcid] 20 mg PO DAILY #30 tablet 05/02/21 Unknown Rx diphenhydrAMINE [Benadryl CAP] 25 mg PO Q8HR PRN #20 capsule 05/02/21 Unknown Rx predniSONE [Deltasone] 20 mg PO DAILY #5 tablet 05/02/21 Unknown Rx ED Physical Exam - General Limitations: No Limitations General appearance: alert, anxious - Head Head exam: Present: atraumatic, normocephalic - Eye Eye exam: Present: normal appearance, EOMI. Absent: nystagmus - ENT ENT exam: Present: normal exam, normal orophraynx, mucous membranes moist, normal external ear exam, other (The patient is speaking in full sentences. There is no stridor. There is no dysphonia. There is no elevation of the base of the tongue. Posterior pharyngeal structures are unremarkable) - Neck Neck exam: Present: normal inspection, full ROM, thyromegaly. Absent: tenderness, meningismus, lymphadenopathy - Respiratory Respiratory exam: Present: normal lung sounds bilaterally. Absent: respiratory distress, wheezes, rales, rhonchi, stridor, decreased breath sounds - Cardiovascular Cardiovascular Exam: Present: regular rate, normal rhythm, normal heart sounds. Absent: bradycardia, tachycardia, irregular rhythm, systolic murmur, diastolic murmur, rubs, gallop - GI/Abdominal GI/Abdominal exam: Present: soft. Absent: distended, tenderness, guarding, rebound, rigid, pulsatile mass - Extremities Exam Extremities exam: Present: normal inspection, full ROM, other (2+ pulses noted in the bilateral upper and lower extremities. There is no palpable cord. negative Homans sign. Muscular compartments are soft. The pelvis is stable.). Absent: pedal edema, calf tenderness - Back Exam Back exam: Present: normal inspection, full ROM. Absent: tenderness, CVA tenderness (R), CVA tenderness (L), paraspinal tenderness, vertebral tenderness - Neurological Exam Neurological exam: Present: alert, oriented X3, other (No facial droop. Tongue midline. Extraocular movements intact bilaterally. Facial sensation intact to light touch in V1, V2, V3 distribution bilaterally. 5 and a 5 strength in 4 extremities. Sensation intact to light touch in 4 extremities.). Absent: motor sensory deficit - Psychiatric Psychiatric exam: Present: anxious - Skin Skin exam: Present: warm, dry, intact, normal color. Absent: rash ED Course Vital Signs 05/17/21 05/17/21 05/17/21 10:26 10:34 11:32 Temperature 98.6 F Pulse Rate 109 H Respiratory 20 Rate Blood Pressure 116/89 Blood Pressure [Left] O2 Sat by Pulse 100 100 Oximetry O2 Sat by Pulse 99 Oximetry [ Digit-Finger] 05/17/21 11:42 Temperature Pulse Rate 73 Respiratory 16 Rate Blood Pressure Blood Pressure 99/68 [Left] O2 Sat by Pulse 100 Oximetry O2 Sat by Pulse Oximetry [ Digit-Finger] - Reevaluation(s) Reevaluation #1: 05/17/21 11:29 Differential diagnosis, include but not limited to: Hyperthyroidism, goiter, anxiety, medication noncompliance Assessment and plan: 25-year-old female, who was afebrile with reassuring vital signs, tachycardia is resolved at this time, with known history of hyperthyroidism, goiter, and noncompliance. Suspect thyromegaly likely secondary to noncompliance. Explained this to the patient. Also counseled patient to discontinue marijuana and tobacco consumption. On my initial evaluation, she is speaking in full sentences, on his cell phone, saturating 100% on room air, and is not stridulous. Her internal airway examination is unremarkable. Will likely need to be restarted on hypothyroid medication. Discussed this with the patient. She is agreeable to this plan of care. Laboratory studies ordered and pending. Reassess after these have resulted. 05/17/21 12:49 The patient is reassessed. TSH, free T4 within normal limits. Laboratory studies otherwise nonactionable. Heart rate 72 bpm. Saturating 100% on room air. Patient noted to be on his cell phone. I did offer the patient an ER ultrasound of the thyroid gland, although I do not think that this test is emergently necessary. Patient declined this study, and prefers to follow-up as an outpatient. Through shared decision making, we agreed with this plan of care. She is suitable to follow-up with outpatient primary care physician. Given TSH, free T4 levels, would not initiate medical therapy at this time. - Pulse Oximetry Interpretation Digit-Finger Initial Pulse Oximetry Readin O2 Sat by Pulse Oximetry: 99 Actions Taken: none ED Medical Decision Making - Lab Data Result diagrams: 05/17/21 10:51 05/17/21 10:51 Vital Signs 05/17/21 05/17/21 10:26 10:34 Temperature 98.6 F Pulse Rate 109 H Respiratory 20 Rate Blood Pressure 116/89 O2 Sat by Pulse 100 100 Oximetry Lab Results 05/17/21 05/17/21 05/17/21 Range/Units 10:51 10:51 10:51 WBC 4.8 (4.5-11.0) K/mm3 RBC 3.96 (3.65-5.03) M/mm3 Hgb 13.3 (10.1-14.3) gm/dl Hct 40.1 (30.3-42.9) % MCV 101 H (79-97) fl MCH 34 H (28-32) pg MCHC 33 (30-34) % RDW 13.3 (13.2-15.2) % Plt Count 199 (140-440) K/mm3 Lymph % (Auto) 27.3 (13.4-35.0) % [place] % (Auto) 7.8 H (0.0-7.3) % Eos % (Auto) 0.3 (0.0-4.3) % Baso % (Auto) 0.3 (0.0-1.8) % Lymph # (Auto) 1.3 (1.2-5.4) K/mm3 [place] # (Auto) 0.4 (0.0-0.8) K/mm3 Eos # (Auto) 0.0 (0.0-0.4) K/mm3 Baso # (Auto) 0.0 (0.0-0.1) K/mm3 Seg Neutrophils % 64.3 (40.0-70.0) % Seg Neutrophils # 3.1 (1.8-7.7) K/mm3 Sodium 140 (137-145) mmol/L Potassium 3.6 (3.6-5.0) mmol/L Chloride 99.9 (98-107) mmol/L Carbon Dioxide 27 (22-30) mmol/L Anion Gap 17 mmol/L BUN 7 (7-17) mg/dL Creatinine 0.7 (0.6-1.2) mg/dL Estimated GFR > 60 ml/min BUN/Creatinine Ratio 10 % Glucose 86 (65-100) mg/dL Calcium 9.1 (8.4-10.2) mg/dL Magnesium 1.80 (1.7-2.3) mg/dL Total Bilirubin 0.70 (0.1-1.2) mg/dL AST 10 (5-40) units/L ALT 8 (7-56) units/L Alkaline Phosphatase 102 (35-129) units/L Total Protein 7.6 (6.3-8.2) g/dL Albumin 4.5 (3.9-5) g/dL Albumin/Globulin Ratio 1.5 % TSH (0.270-4.200) mlU/mL Free T4 1.12 (0.76-1.46) ng/dL HCG, Quant (0-4) mIU/mL 05/17/21 05/17/21 Range/Units 10:51 10:51 WBC (4.5-11.0) K/mm3 RBC (3.65-5.03) M/mm3 Hgb (10.1-14.3) gm/dl Hct (30.3-42.9) % MCV (79-97) fl MCH (28-32) pg MCHC (30-34) % RDW (13.2-15.2) % Plt Count (140-440) K/mm3 Lymph % (Auto) (13.4-35.0) % [place] % (Auto) (0.0-7.3) % Eos % (Auto) (0.0-4.3) % Baso % (Auto) (0.0-1.8) % Lymph # (Auto) (1.2-5.4) K/mm3 [place] # (Auto) (0.0-0.8) K/mm3 Eos # (Auto) (0.0-0.4) K/mm3 Baso # (Auto) (0.0-0.1) K/mm3 Seg Neutrophils % (40.0-70.0) % Seg Neutrophils # (1.8-7.7) K/mm3 Sodium (137-145) mmol/L Potassium (3.6-5.0) mmol/L Chloride (98-107) mmol/L Carbon Dioxide (22-30) mmol/L Anion Gap mmol/L BUN (7-17) mg/dL Creatinine (0.6-1.2) mg/dL Estimated GFR ml/min BUN/Creatinine Ratio % Glucose (65-100) mg/dL Calcium (8.4-10.2) mg/dL Magnesium (1.7-2.3) mg/dL Total Bilirubin (0.1-1.2) mg/dL AST (5-40) units/L ALT (7-56) units/L Alkaline Phosphatase (35-129) units/L Total Protein (6.3-8.2) g/dL Albumin (3.9-5) g/dL Albumin/Globulin Ratio % TSH 0.353 (0.270-4.200) mlU/mL Free T4 (0.76-1.46) ng/dL HCG, Quant < 2 (0-4) mIU/mL Critical care attestation.: If time is entered above; I have spent that time in minutes in the direct care of this critically ill patient, excluding procedure time. ED Disposition Clinical Impression: Goiter, Tobacco use, Marijuana use Disposition: HOME / SELF CARE / HOMELESS Is pt being admited?: No Does the pt Need Aspirin: No Condition: Good Instructions: Cannabis Use Disorder, Goiter Additional Instructions: We recommend that the patient discontinue tobacco and marijuana consumption. We recommend that the patient follow-up with an outpatient primary care doctor, or baggagemaster as soon as possible to continue/initiate outpatient medical care. Please advance diet as tolerated, and drink plenty of fluids. Return to the emergency room right away with new pain, worsened pain, migration of pain, projectile vomiting, inability to speak, inability to breathe, or any new, worsened or different symptoms not present on the initial emergency room evaluation. Long-term consumption of tobacco marijuana is a risk factor for cancer. Referrals: LINETTE YUEN MD [Staff Physician] - 3-5 Days [facility] [Provider Group] - 3-5 Days Forms: Work/School Release Form(ED)
[2021-05-17 11:35] LABS: Basophils % (Auto) 0.3 % (0.0-1.8); Eosinophils % (Auto) 0.3 % (0.0-4.3); Hematocrit 40.1 % (30.3-42.9); Hemoglobin 13.3 gm/dl (10.1-14.3); Lymphocytes # (Auto) 1.3 K/mm3 (1.2-5.4); Lymphocytes % (Auto) 27.3 % (13.4-35.0); Mean Corpuscular HGB Conc 33 % (30-34); Mean Corpuscular Volume 101 fl (79-97); Monocytes # (Auto) 0.4 K/mm3 (0.0-0.8); Monocytes % (Auto) 7.8 % (0.0-7.3); Platelet Count 199 K/mm3 (140-440); Red Blood Count 3.96 M/mm3 (3.65-5.03); Red Cell Distribution Width 13.3 % (13.2-15.2)
[2021-05-17 11:42] LABS: Alanine Aminotransferase 8 units/L (7-56); Albumin 4.5 g/dL (3.9-5); Blood Urea Nitrogen 7 mg/dL (7-17); Calcium 9.1 mg/dL (8.4-10.2); Hemolysis Index 4
[2021-05-17 11:45] LABS: BUN/Creatinine Ratio 10
[2021-05-17 12:56] VITALS: BP 102/71
== END 2021-05-17 12:56 | disposition home or self-care (01) ==
LOC: ED 10:22
DX: E04.9 Nontoxic goiter, unspecified (principal); Z72.0 Tobacco use; F12.90 Cannabis use, unspecified, uncomplicated; F10.20 Alcohol dependence, uncomplicated; Z86.39 Personal history of other endocrine, nutritional and metabolic disease
CPT/HCPCS: 36415; 80053; 83735; 84439; 84443; 84702; 85025; 99283